=== PATIENT | female | born 1975 | race Caucasian/White ===

== ENCOUNTER 2022-08-29 12:22 | Emergency (ER) | payer BC, SELFPAY ==
--- NOTE | ~2022-08-29 | US_ITS ---
EXAMINATION: US ABDOMEN LIMITED CLINICAL INFORMATION: Epigastric pain. COMPARISON: None TECHNIQUE: Real-time imaging of the right upper quadrant abdominal viscera. FINDINGS: PANCREAS: Head and body appear unremarkable. Tail not visualized. LIVER: The liver is normal in size, measuring 17.0 cm in sagittal dimension. The liver contour appears unremarkable. Parenchymal echogenicity is normal. No focal hepatic lesion appreciated. There is no intrahepatic biliary duct dilatation seen. GALLBLADDER: Question 0.7 x 0.6 x 0.4 cm polyp versus nonshadowing stone versus artifact in the region of the gallbladder neck. COMMON BILE DUCT: Normal in caliber measuring 0.3 cm in diameter. RIGHT KIDNEY: No hydronephrosis. No renal calculi or focal parenchymal lesions. The kidney measures 11.7 cm in maximum dimension. FREE FLUID: None. US/US abdomen limited IMPRESSION: Question 0.7 x 0.6 x 0.4 cm polyp versus nonshadowing stone versus artifact in the region of the gallbladder neck.
[2022-08-29 12:42] VITALS: BP 119/84; PULSE 95; RESP 18; TEMP 36.6; O2SAT 100; BMI 23.0
--- NOTE | 2022-08-29 12:42 | ED_ITS ---
HPI - Abdominal Pain General Chief Complaint: Abdominal Pain <SUKHJINDER Minor - Last Filed: 08/29/22 12:46> Stated Complaint: abd pain <SUKHJINDER Minor - Last Filed: 08/29/22 12:46> Time Seen by Provider: 08/29/22 17:06 <SUKHJINDER Minor - Last Filed: 08/29/22 12:46> Source: patient <Kingston Bull MD - Last Filed: 08/29/22 17:22> Mode of arrival: ambulatory <Kingston Bull MD - Last Filed: 08/29/22 17:22> Limitations: no limitations <Kingston Bull MD - Last Filed: 08/29/22 17:22> History of Present Illness HPI narrative: 46-year-old female with no major medical problems presents with epigastric abdominal pain. The symptoms started 3 days ago. She describes it as a rambling and discomfort. Started after eating food. She does not eat fatty or fried foods. Pain did not radiate. It is moderate in nature. Every time she eats she gets similar symptoms. She denies any nausea vomiting, diarrhea, constipation. The pain does not radiate. She describes it again as a discomfort and rumbling. Not burning in nature. Is not sharp in nature. Not associated with exertion. Prior to this, patient has never had this before. She is status post appendectomy. Patient denies NSAID use and alcohol use. <Kingston Bull MD - Last Filed: 08/29/22 17:22> Related Data Home Medications: Previous Rx's Medication Instructions Recorded dicyclomine 20 mg tablet 20 mg PO TID #14 tabs 08/29/22 pantoprazole 40 mg tablet,delayed 40 mg PO DAILY #14 tabs 08/29/22 release <SUKHJINDER Minor - Last Filed: 08/29/22 12:46> Allergies/Adverse Reactions: Allergies Allergy/AdvReac Type Severity Reaction Status Date / Time Penicillins [PCN] Allergy Rash Verified 08/29/22 12:42 <SUKHJINDER Minor - Last Filed: 08/29/22 12:46> Review of Systems Review of Systems CONSTITUTIONAL: Denies weight loss, fever and chills. HEENT: Denies changes in vision and hearing. RESPIRATORY: Denies SOB and cough. CV: Denies palpitations no CP. GI: Positive abdominal pain, negative nausea, vomiting and diarrhea. : Denies dysuria and urinary frequency. MSK: Denies myalgia and joint pain. SKIN: Denies rash and pruritus. NEUROLOGICAL: Denies headache and syncope. PSYCHIATRIC: Denies recent changes in mood. Denies anxiety and depression. All other ROS are negative unless in HPI <Kingston Bull MD - Last Filed: 08/29/22 17:22> [facility] Social History Social History: Social History Advance Directives: No Advance Directives Information Provided: Yes <SUKHJINDER Minor - Last Filed: 08/29/22 12:46> Physical Exam ED Vital Signs: Vital Signs - 24 hr 08/29/22 12:42 Temperature 98 F Pulse Rate 95 Respiratory Rate 18 Blood Pressure 119/84 Pulse Oximetry 100 Oxygen Delivery Method Room Air BMI result Body Mass Index 23.0 <SUKHJINDER Minor - Last Filed: 08/29/22 12:46> Vital Signs - 24 hr 08/29/22 12:42 Temperature 98 F Pulse Rate 95 Respiratory Rate 18 Blood Pressure 119/84 Pulse Oximetry 100 Oxygen Delivery Method Room Air BMI result Body Mass Index 23.0 <Kingston Bull MD - Last Filed: 08/29/22 17:22> GEN: Well developed, no acute distress, alert, oriented HEENT: Normocephalic, atraumatic, normal external ears, nose appears normal, no oropharyngeal edema or exudates Eyes: Normal to appearance Neck: Supple, no lymphadenopathy Respiratory: Talks in complete sentences, no respiratory distress, clear to auscultation bilaterally Cardiovascular: Regular rate and rhythm, no murmurs rubs or gallops Abdomen: Soft, nontender, nondistended, no guarding, no rebound, negative Arndt sign Back: No CVA tenderness Extremities: No clubbing cyanosis or edema Neurologic: No focal neurologic deficits, cranial nerves 2-12 intact, strength is 5/5 bilaterally, gait normal Skin: No rash <Kingston Bull MD - Last Filed: 08/29/22 17:22> Course Course Course Narrative: RME - 46 yo F, with a past hx of renal artery aneurysm, presenting for evaluation of epigastric pain x 4 days. Pain worsens after eating. No nausea, vomiting, diarrhea. Last BM yesterday. No CP/SOB. VSS in triage. Patient stable to return to waiting room until treatment room becomes available. Plan: Labs, US abdomen ordered. <SUKHJINDER Minor - Last Filed: 08/29/22 12:46> Reevaluation(s) Reevaluation #1: The workup is complete. Ultrasound revealed a polyp in the gallbladder versus stone. This was discussed with the patient. She is currently asymptomatic. Exam is benign. There are no elevated LFTs. This is not exertional. Doubt cardiac in etiology. Suspect this is dyspepsia, GERD, gastritis possible biliary colic. I discussed all results with the patient. Discussed discharge plan and medications. She will follow-up with a general surgeon for further evaluation. <Kingston Bull MD - Last Filed: 08/29/22 17:22> Time: 17:16 <Kingston Bull MD - Last Filed: 08/29/22 17:22> Medical Decision Making Medical Decision Making [facility] Narrative: 46-year-old female presents with epigastric abdominal pain. Her e xamination is benign. Workup will include laboratory analysis, ultrasound and re-evaluation. <Kingston Bull MD - Last Filed: 08/29/22 17:22> Differential Diagnosis Differential Diagnoses: The differential diagnosis associated with the presentation includes (GERD, gastritis, dyspepsia, IBD, IBS, biliary colic, cholecystitis, diverticulitis) <Kingston Bull MD - Last Filed: 08/29/22 17:22> Admission/Observation Consideration of admission/observation: Escalation of care including admission/observation considered <Kingston Bull MD - Last Filed: 08/29/22 17:22> Lab Data [facility] Lab Attestation statement: I reviewed the patient's lab results. <Kingston Bull MD - Last Filed: 08/29/22 17:22> Result Diagrams: 08/29/22 12:59 08/29/22 12:59 <SUKHJINDER Minor - Last Filed: 08/29/22 12:46> Labs: Lab Results 08/29/22 08/29/22 Range/Units 12:59 12:59 WBC 5.0 (4.8-10.8) X10*3/uL RBC 4.21 (4.20-5.50) X10*6/uL Hgb 13.0 (12.0-16.0) g/dl Hct 38.4 (37.0-47.0) % MCV 91.2 (80.0-98.0) fL MCH 30.9 (27.0-33.0) pg MCHC 33.9 (31.0-35.0) g/dl RDW 12.4 (11.0-16.0) % Plt Count 178 (160-400) X10*3/uL MPV 9.5 (9.4-12.3) fL Immature Gran % (Auto) 0.2 (0.0-0.4) % Neut % (Auto) 46.5 (45-73) % Lymph % (Auto) 38.2 (20-40) % Anson % (Auto) 12.7 H (2-11) % Eos % (Auto) 2.2 (0-4) % Baso % (Auto) 0.2 (0-2) % Lymph # (Auto) 1.9 (1.2-4.9) X10*3/uL Anson # (Auto) 0.6 (0.1-1.2) X10*3/uL Eos # (Auto) 0.1 (0.0-0.4) X10*3/uL Baso # (Auto) 0.0 (0.0-0.2) X10*3/uL Abs Immat Gran (auto) 0.01 (0.00-0.03) X10*3/uL Absolute Neuts (auto) 2.3 (2.0-8.3) x10*3/uL Absolute Nucleated RBC 0.000 (0.0-0.012) X10*3/uL Nucleated RBC % (auto) 0.0 (0.0-0.2) /100WBC Sodium 140 (135-145) mmol/L Potassium 4.1 (3.3-5.1) mmol/L Chloride 105 (96-108) mmol/L Carbon Dioxide 27 (22-29) mmol/L Anion Gap 12 (12-20) BUN 11 (9-16) mg/dL Creatinine 0.71 (0.5-1.4) mg/dL Estim Creat Clear Calc 84.6 Estimated GFR > 60 Random Glucose 88 (60-115) mg/dL Calcium 9.1 (8.4-10.2) mg/dL Magnesium 1.9 (1.6-2.6) mg/dL Total Bilirubin 0.3 (0.0-1.0) mg/dL Direct Bilirubin < 0.2 (0.0-0.5) mg/dL AST 17 (5-31) U/L ALT 11 (0-31) U/L Alkaline Phosphatase 61 (39-117) U/L Total Protein 7.2 (6.5-8.0) g/dL Albumin 4.0 (3.5-5.0) g/dL Lipase 25 (8-78) U/L <SUKHJINDER Minor - Last Filed: 08/29/22 12:46> Lab Results 08/29/22 08/29/22 Range/Units 12:59 12:59 WBC 5.0 (4.8-10.8) X10*3/uL RBC 4.21 (4.20-5.50) X10*6/uL Hgb 13.0 (12.0-16.0) g/dl Hct 38.4 (37.0-47.0) % MCV 91.2 (80.0-98.0) fL MCH 30.9 (27.0-33.0) pg MCHC 33.9 (31.0-35.0) g/dl RDW 12.4 (11.0-16.0) % Plt Count 178 (160-400) X10*3/uL MPV 9.5 (9.4-12.3) fL Immature Gran % (Auto) 0.2 (0.0-0.4) % Neut % (Auto) 46.5 (45-73) % Lymph % (Auto) 38.2 (20-40) % Anson % (Auto) 12.7 H (2-11) % Eos % (Auto) 2.2 (0-4) % Baso % (Auto) 0.2 (0-2) % Lymph # (Auto) 1.9 (1.2-4.9) X10*3/uL Anson # (Auto) 0.6 (0.1-1.2) X10*3/uL Eos # (Auto) 0.1 (0.0-0.4) X10*3/uL Baso # (Auto) 0.0 (0.0-0.2) X10*3/uL Abs Immat Gran (auto) 0.01 (0.00-0.03) X10*3/uL Absolute Neuts (auto) 2.3 (2.0-8.3) x10*3/uL Absolute Nucleated RBC 0.000 (0.0-0.012) X10*3/uL Nucleated RBC % (auto) 0.0 (0.0-0.2) /100WBC Sodium 140 (135-145) mmol/L Potassium 4.1 (3.3-5.1) mmol/L Chloride 105 (96-108) mmol/L Carbon Dioxide 27 (22-29) mmol/L Anion Gap 12 (12-20) BUN 11 (9-16) mg/dL Creatinine 0.71 (0.5-1.4) mg/dL Estim Creat Clear Calc 84.6 Estimated GFR > 60 Random Glucose 88 (60-115) mg/dL Calcium 9.1 (8.4-10.2) mg/dL Magnesium 1.9 (1.6-2.6) mg/dL Total Bilirubin 0.3 (0.0-1.0) mg/dL Direct Bilirubin < 0.2 (0.0-0.5) mg/dL AST 17 (5-31) U/L ALT 11 (0-31) U/L Alkaline Phosphatase 61 (39-117) U/L Total Protein 7.2 (6.5-8.0) g/dL Albumin 4.0 (3.5-5.0) g/dL Lipase 25 (8-78) U/L <Kingston Bull MD - Last Filed: 08/29/22 17:22> Independent Interpretation I performed an independent interpretation of an: Ultrasound (No evidence of acute cholecystitis) <Kingston Bull MD - Last Filed: 08/29/22 17:22> Radiology Impression Discussion of test interpretation with radiology: I have reviewed the radiologist's reading. (IMPRESSION: Question 0.7 x 0.6 x 0.4 cm polyp versus nonshadowing stone versus artifact in the region of the gallbladder neck. Dictated By:Richard Ojedaigned By:<Electronically signed by Kip Ojeda in OV>08/29/22 1604) <Kingston Bull MD - Last Filed: 08/29/22 17:22> External Record Review No previous records available <Kingston Bull MD - Last Filed: 08/29/22 17:22> Tests considered The following testing was considered but not selected: CT scan abdomen and pelvis <Kingston Bull MD - Last Filed: 08/29/22 17:22> Prescription Management I considered prescription management with: Pain Medication <Kingston Bull MD - Last Filed: 08/29/22 17:22> Discharge Plan Discharge Clinical Impression: Abdominal pain, epigastric <SUKHJINDER Minor - Last Filed: 08/29/22 12:46> Patient Disposition: Home, Self-Care <SUKHJINDER Minor - Last Filed: 08/29/22 12:46> Instructions: Gastritis (ED), Biliary Colic (ED), Gastroesophageal Reflux Disease (ED), Abdominal Pain (ED), Epigastric Pain (ED) <SUKHJINDER Minor - Last Filed: 08/29/22 12:46> Additional Instructions: You were seen today for epigastric abdominal pain. Your examination was benign. Her laboratory results not show any abnormalities of the liver function test. Your ultrasound did show possible polyp versus gallstone. She developed persistent upper abdominal pain, you should seek attention in the emergency department. Otherwise, I will refer you to a general surgeon for re-evaluation for the possible polyp versus gallstone. In the meantime, I will start him on a proton pump inhibitor like pantoprazole she will take daily to reduce the acid in her stomach. In addition I will prescribe Bentyl or dicyclomine which may take 30 minutes before meals and before bed as needed for discomfort with eating. <SUKHJINDER Minor - Last Filed: 08/29/22 12:46> Prescriptions: New dicyclomine 20 mg tablet 20 mg PO TID Qty: 14 0RF Rx Instructions: Take 1 tablet orally 30 minutes before meals as needed for abdominal discomfort pantoprazole 40 mg tablet,delayed release (DR/EC) 40 mg PO DAILY Qty: 14 0RF <SUKHJINDER Minor - Last Filed: 08/29/22 12:46> Referrals: Mary Soni MD [Primary Care Provider] - 1 week Geronimo Lozano MD [Physician] - 1 week <SUKHJINDER Minor - Last Filed: 08/29/22 12:46>
[2022-08-29 13:03] LABS: MANUAL DIFF FLAG NO
[2022-08-29 13:06] LABS: Basophils Percent Auto 0.2 % (0-2); Eosinophils Absolute Auto 0.1 X10*3/uL (0.0-0.4); Eosinophils Percent Auto 2.2 % (0-4); Hematocrit 38.4 % (37.0-47.0); Imm Gran Abs Auto 0.01 X10*3/uL (0.00-0.03); Imm Gran Pct Auto 0.2 % (0.0-0.4); Lymphocytes Absolute Auto 1.9 X10*3/uL (1.2-4.9); Lymphocytes Percent Auto 38.2 % (20-40); Mean Corpuscular HGB Conc 33.9 g/dl (31.0-35.0); Mean Corpuscular Hemoglobin 30.9 pg (27.0-33.0); Mean Corpuscular Volume 91.2 fL (80.0-98.0); Mean Platelet Volume 9.5 fL (9.4-12.3); Monocytes Absolute Auto 0.6 X10*3/uL (0.1-1.2); Monocytes Percent Auto 12.7 % (2-11); Neutrophils Absolute Auto 2.3 x10*3/uL (2.0-8.3); Neutrophils Percent Auto 46.5 % (45-73); Platelet Count 178 X10*3/uL (160-400); Red Blood Count 4.21 X10*6/uL (4.20-5.50); Red Cell Distribution Width 12.4 % (11.0-16.0)
[2022-08-29 13:35] LABS: Alanine Aminotransferase 11 U/L (0-31); Alkaline Phosphatase 61 U/L (39-117); Anion Gap 12 (12-20); Aspartate Amino Transferase 17 U/L (5-31); Bilirubin Direct < 0.2 mg/dL (0.0-0.5); Bilirubin Total 0.3 mg/dL (0.0-1.0); Blood Urea Nitrogen 11 mg/dL (9-16); Calcium 9.1 mg/dL (8.4-10.2); Carbon Dioxide 27 mmol/L (22-29); Chloride 105 mmol/L (96-108); Creatinine Clr Calc Pharmacy 84.6; Estimated Glomerular Filt Rate > 60; Glucose Random 88 mg/dL (60-115); Lipase 25 U/L (8-78); Magnesium 1.9 mg/dL (1.6-2.6); Potassium 4.1 mmol/L (3.3-5.1); Sodium 140 mmol/L (135-145); Total Protein 7.2 g/dL (6.5-8.0)
== END 2022-08-29 17:27 | disposition home or self-care (01) ==
PROVIDERS: Physician Assistant; Emergency Provider Emergency Medicine; PCP Internal Medicine
DX: R10.13 Epigastric pain (principal)
CPT/HCPCS: 36415; 76705; 80048; 80076; 83690; 83735; 85025; 99282; 99284

== ENCOUNTER → 2022-08-31 15:15 | Outpatient (BNVA) | payer BC, SELFPAY | PROVIDERS: PCP Internal Medicine; Visit Provider Surgery | DX: Z13.89 Encounter for screening for other disorder (principal) ==

== ENCOUNTER 2022-09-26 08:51 | Outpatient (REF) | payer BC, SELFPAY ==
--- NOTE | ~2022-09-26 | CT_ITS ---
EXAMINATION: CT ABDOMEN AND PELVIS WITH CONTRAST CLINICAL INFORMATION: Abdominal pain COMPARISON: Ultrasound dated 08/29/2022 TECHNIQUE: Multidetector volumetric images were obtained from the superior aspect of the liver through the pubic symphysis following administration 85 mL of Omnipaque 350 intravenous contrast. Sagittal and coronal reformatted images were obtained on the technologist's workstation. Oral contrast: No This CT examination was performed using dose optimization techniques as appropriate, variously including the following: *Automated exposure control *Adjustment of mA and/or kV according to patient size (this includes techniques or standardized protocols for targeted exams where dose is matched to indication/reason for exam; i.e. extremities or head) *Use of iterative reconstruction technique DLP: 301 mGy-cm FINDINGS: LUNG BASES: The visualized lung bases are unremarkable. LIVER, GALLBLADDER, AND BILIARY TREE: The liver is normal in size, shape, and attenuation. No focal hepatic lesion or biliary ductal dilatation is present. The gallbladder is unremarkable with no evidence of radiopaque gallstones, gallbladder wall thickening, or obvious pericholecystic inflammatory changes. PANCREAS: Unremarkable. SPLEEN: Unremarkable. ADRENAL GLANDS: Unremarkable. KIDNEYS AND URETERS: The kidneys are normal in size, shape, and attenuation. No hydronephrosis, hydroureter, or calculi seen. No perinephric stranding. Benign-appearing left renal cyst. Followup imaging is not routinely recommended for benign appearing cysts.. BLADDER: Unremarkable. GASTROINTESTINAL TRACT: The small and large bowel are unremarkable. The appendix is unremarkable. ABDOMINAL WALL: No significant hernia is appreciated. LYMPH NODES: Normal. VASCULAR: Unremarkable. PELVIC VISCERA: Unremarkable. OSSEOUS STRUCTURES: Unremarkable. CT/CT abdomen pelvis w IV con IMPRESSION: No acute intra-abdominal abnormality. Previously seen gallstone/polyp on prior ultrasound is not visualized on today's study and may not be radiopaque.
[2022-09-26] MEDS: iohexoL 350 MG/ML 100 ML INFUS..BTL 85 ML IV (09:21)
== END 2022-09-26 08:52 | disposition home or self-care (01) ==
LOC: HO.CT 08:51
PROVIDERS: Visit Provider Surgery
DX: R10.9 Unspecified abdominal pain (principal); G89.29 Other chronic pain
CPT/HCPCS: 74177; Q9967

== ENCOUNTER → 2022-10-03 15:35 | Outpatient (BNVA) | payer BC, SELFPAY | PROVIDERS: PCP Internal Medicine; Visit Provider Surgery | DX: Z13.89 Encounter for screening for other disorder (principal) ==

== ENCOUNTER 2022-10-17 10:15 | Outpatient (REF) | payer BC, SELFPAY ==
--- NOTE | ~2022-10-17 | MR_ITS ---
EXAMINATION: MR BRAIN WITHOUT CONTRAST CLINICAL INFORMATION: Left facial numbness and paresthesias for one year. COMPARISON: None available. TECHNIQUE: Multiplanar, multisequence imaging of the brain was performed without intravenous contrast. FINDINGS: There is no acute infarction, hemorrhage, mass, or extra-axial fluid collection. The brain parenchyma signal appears normal. No demyelinating plaques are seen. The corpus callosum and upper cervical cord appear normal on the sagittal T2/FLAIR acquisition. The ventricles are normal in size and configuration without hydrocephalus. No brain parenchymal volume loss is seen. The major arterial flow voids are preserved at the skull base. The orbital contents appear normal. The extracranial structures are unremarkable. The facial soft tissues appear symmetric. The visualized secretarial stenographer spaces are unremarkable. MR/MR head/brain wo con IMPRESSION: No acute infarct, mass lesion, intracranial hemorrhage, or evidence of hydrocephalus. No demyelinating plaques.
== END 2022-10-17 10:16 | disposition home or self-care (01) ==
LOC: HO.MRI 10:15
PROVIDERS: PCP Internal Medicine; Visit Provider Psychiatry & Neurology Neurology
DX: G37.9 Demyelinating disease of central nervous system, unspecified (principal)
CPT/HCPCS: 70551

== ENCOUNTER 2023-05-29 08:37 | Outpatient (REF) | payer BC, SELFPAY ==
--- NOTE | ~2023-05-29 | US_ITS ---
EXAMINATION: US ABDOMEN LIMITED CLINICAL INFORMATION: Cholesterolosis of the gallbladder. Follow up for question of gallbladder polyp versus gallstone. COMPARISON: CT abdomen and pelvis with contrast 09/26/2022. Ultrasound abdomen limited 08/29/2022. TECHNIQUE: Real-time imaging of the right upper quadrant abdominal viscera. FINDINGS: PANCREAS: Normal. LIVER: Normal. The liver is normal in size. The liver contour is normal. Parenchymal echogenicity is normal. No focal hepatic lesion. There is no intrahepatic biliary duct dilatation seen. GALLBLADDER: Normal. The gallbladder is physiologically distended without evidence of stones, sludge, polyps, wall thickening or pericholecystic fluid. COMMON BILE DUCT: Normal in caliber measuring 0.1 cm in diameter. RIGHT KIDNEY: Normal. No hydronephrosis. No renal calculi or focal parenchymal lesions. The kidney measures 12.2 cm in maximum dimension. FREE FLUID: None. US/US abdomen limited IMPRESSION: Unremarkable study. 7 mm polyp versus nonshadowing stone questioned on 08/29/2022 ultrasound is not identified on today's examination.
== END 2023-05-29 08:38 | disposition home or self-care (01) ==
LOC: HO.US 08:37
PROVIDERS: PCP Internal Medicine; Visit Provider Surgery
DX: K82.4 Cholesterolosis of gallbladder (principal)
CPT/HCPCS: 76705

== ENCOUNTER 2023-06-05 09:25 | Outpatient (AMB) | payer BC, SELFPAY ==
--- NOTE | 2023-06-05 09:26 | A.OFFVIS_ITS ---
Intake Vital Signs 06/05/23 09:32 Height 5 ft 4 in Weight 157 lb 2.01 oz BMI 27.0 BP 129/69 Blood Pressure Location Rt brachial Position Sitting Pulse 62 Intake Visit Reasons: Gallbladder polyp, US results Intake Note: This patient presents for a follow-up assessment for Ultrasound results. Patient c/o; reports no changes or concerns at this time. Filament Coil Winder Required: No Accompanied by: Self / Same As Patient Allergies Penicillins [PCN] Allergy (Verified 06/05/23 09:33) Rash Medication List - Last Reconciled 06/05/23 by Geronimo Lozano MD dicyclomine 20 mg PO TID pantoprazole 40 mg PO DAILY HPI Gallbladder polyp, US results HPI Details She is here because of a history of what appeared to be a gallbladder p olyp on imaging studies from last August,. She had been to the ER at that time for some vague abdominal pain I had ordered for a follow-up ultrasound and she is here to discuss this. She denies any GI complaints. She denies any abdominal pain. [facility] Medical History Gallbladder polyp Chronic abdominal pain Surgical History History of tubal ligation History of appendectomy Social History Alcohol intake: current Alcohol intake frequency: holidays/special occasions only Patient Tobacco Use Status: Never used Tobacco Review of Systems Const Denies chills and Denies fever(s) Card Denies chest pain, Denies dyspnea and Denies dyspnea on exertion Resp Denies cough, Denies dyspnea and Denies dyspnea on exertion GI Denies hematochezia and Denies change in bowel habits Denies hematuria Musc Denies back pain and Denies limited range of motion Neuro Denies focal weakness and Denies convulsions Psych Denies depression and Denies mood swings Physical Exam Vital Signs: Last Vital Signs Pulse 62 06/05/23 09:32 BP 129/69 06/05/23 09:32 BMI result Body Mass Index 27.0 Const General: comfortable and no acute distress Resp Effort & Inspection: normal respiratory effort Cardio Rate: regular rate GI Palpation (GI): Soft to palpation, not firm and nontender Assessment & Plan Assessment & Plan (1) Gallbladder polyp: Code(s): K82.4 - Cholesterolosis of gallbladder Plan: I have reviewed her follow-up ultrasound done on 05/29/2023 and this actually does not reveal any gallbladder polyps or any nor gallstones. I explained to her this finding. She does not require any further workup at this time. She can follow up on a p.r.n. basis. Coding Level of Care Code Est Pt Level 3 (69673) Diagnoses Gallbladder polyp K82.4
[2023-06-05 09:32] VITALS: BP 129/69; PULSE 62; BMI 27.0
== END 2023-06-05 09:35 | disposition home or self-care (01) ==
PROVIDERS: PCP Internal Medicine; Visit Provider Surgery
DX: K82.4 Cholesterolosis of gallbladder (principal)
CPT/HCPCS: 99213

== ENCOUNTER → 2023-06-05 09:25 | Outpatient (BNVA) | payer BC, SELFPAY | PROVIDERS: PCP Internal Medicine; Visit Provider Surgery ==

== ENCOUNTER 2024-09-16 08:09 | Emergency (ER) | payer BC, SELFPAY ==
[2024-09-16 08:18] VITALS: BP 124/73; PULSE 66; RESP 16; TEMP 37; O2SAT 100; BMI 26.9
--- NOTE | 2024-09-16 08:46 | ED_ITS ---
HPI - Headache General Chief Complaint: Headache Stated Complaint: migraine Time Seen by Provider: 09/16/24 08:32 History of Present Illness HPI Narrative: Patient is a 49-year-old female with a history of migraine. Patient complaining of headache mainly on the right side. There is no vomiting positive nausea. Patient is from home. No focal weakness. No chest pain or diaphoresis. Symptoms been ongoing for 2 days. Very similar to previous bouts. Positive photophobia. No prodrome. Try a Triptan but did not help Related Data Previous Rx's ?Medication ?Instructions ?Recorded dicyclomine 20 mg tablet 20 mg PO TID #14 tabs 08/29/22 pantoprazole 40 mg tablet,delayed 40 mg PO DAILY #14 tabs 08/29/22 release Allergies Allergy/AdvReac Type Severity Reaction Status Date / Time Penicillins [PCN] Allergy Rash Verified 09/16/24 08:22 Review of Systems Review of Systems: positive headache positive nausea vomiting Yes all other systems are reviewed and are negative PMFSH Past Medical History Attestation statement: The following information was validated with the patient. Medical History Gallbladder polyp Chronic abdominal pain Surgical History History of tubal ligation History of appendectomy Social History Social History Alcohol intake: current Alcohol intake frequency: holidays/special occasions only Patient Tobacco Use Status: Never used Tobacco Smoked in Last 30 Days: No Advance Directives: No Advance Directives Information Provided: Yes Patient : No Physical Exam Vital Signs: Vital Signs: Last Vital Signs Temp 98.6 F 09/16/24 08:18 Pulse 66 09/16/24 08:18 Resp 16 09/16/24 08:18 BP 124/73 09/16/24 08:18 Pulse Ox 100 09/16/24 08:18 O2 Del Method Room Air 09/16/24 08:18 BMI result Body Mass Index 26.9 Appearance: Alert. Oriented X3. No acute distress. Eyes: Pupils equal, round and reactive to light. ENT: Pharynx normal. Neck: Normal inspection. Neck supple. No lymph nodes noted. No crepitus CVS: Normal heart rate and rhythm. Pulses normal. Normal S1 and S2 Respiratory: No respiratory distress. Breath sounds normal. No Wheezing. No rales Abdomen: Soft and nontender. No rigidity. No distention. good BS x4 Skin: Skin warm and dry. Normal skin color. Normal skin turgor. Extremities: No lower extremity edema. Neurovascular intact to all extremities. No Lacerations. No Rash Neuro: Oriented X 3. No motor deficit. No sensory deficit. Moving all extermities. No slurred speech Medications Administered Discontinued Medications Generic Name Dose Route Start Last Admin Trade Name Jameelq PRN Reason Stop Dose Admin Diphenhydramine HCl 50 mg 09/16/24 08:42 09/16/24 09:09 Diphenhydramine Hcl 50 Mg/Ml Vial IVPUSH 09/16/24 08:43 50 mg ONCE ONE Administration Sodium Chloride 1,000 mls @ 999 mls/hr 09/16/24 08:45 09/16/24 09:08 Ns IV 09/16/24 09:45 999 mls/hr .Q1H1M JASPER Administration Ketorolac Tromethamine 15 mg 09/16/24 08:43 09/16/24 09:08 Ketorolac Tromethamine 15 Mg/Ml Vial IVPUSH 09/16/24 08:44 15 mg ONCE ONE Administration Metoclopramide HCl 10 mg 09/16/24 08:42 09/16/24 09:09 Metoclopramide Hcl 10 Mg/2 Ml Vial IVPUSH 09/16/24 08:43 10 mg ONCE ONE Administration Medical Decision Making Medical Decision Making [facility] Narrative: Patient is 49 years old presents today with having headache that is very similar to previous bouts of migraine. Patient was given Reglan Benadryl Toradol with good relief symptoms headache is completely gone symptoms not consistent with meningitis not consistent with having intracranial bleed. Will discharge patient home close follow-up on an outpatient basis. Differential Diagnosis Differential Diagnoses: The differential diagnosis associated with the presentation includes Migraine headache Lab Data [facility] Lab Attestation statement: I reviewed the patient's lab results. Prescription Management I considered prescription management with: Antibiotic ( not needed) Chronic Conditions history of migraine Discharge Plan Discharge Clinical Impression: Migraine Patient Disposition: Home, Self-Care Instructions: Migraine Headache (ED) Prescriptions: No Action dicyclomine 20 mg tablet 20 mg PO TID Qty: 14 0RF Rx Instructions: Take 1 tablet orally 30 minutes before meals as needed for abdominal discomfort pantoprazole 40 mg tablet,delayed release (DR/EC) 40 mg PO DAILY Qty: 14 0RF Referrals: Oralia Velez MD [Primary Care Provider] - 09/18/24 Print Language: Japanese
[2024-09-16] MEDS: Ketorolac Tromethamine 15 MG/ML VIAL IVPUSH (09:08)
[2024-09-16] MEDS: 0.9 % Sodium Chloride 1,000 ML 999 ML IV (09:08)
[2024-09-16] MEDS: Metoclopramide HCl 10 MG/2 ML VIAL IVPUSH (09:09)
[2024-09-16] MEDS: diphenhydrAMINE HCL 50 MG/ML VIAL IVPUSH (09:09)
[2024-09-16 10:17] VITALS: BP 100/55; PULSE 56; RESP 14; TEMP 36.7; O2SAT 100
[2024-09-16 10:30] VITALS: BP 100/55; PULSE 56; RESP 14; TEMP 36.7; O2SAT 100
== END 2024-09-16 10:31 | disposition home or self-care (01) ==
PROVIDERS: Emergency Provider Emergency Medicine Emergency Medical Services; PCP Internal Medicine
DX: G43.909 Migraine, unspecified, not intractable, without status migrainosus (principal); R11.0 Nausea; H53.143 Visual discomfort, bilateral
CPT/HCPCS: 96374; 96375; 99284; 99285; J1200; J1885; J2765

== ENCOUNTER 2024-11-20 11:17 | Emergency (ER) | payer BC, SELFPAY ==
--- NOTE | ~2024-11-20 | US_ITS ---
EXAMINATION: US ABDOMEN LIMITED HISTORY: RUQ abd pain. TECHNIQUE: Real-time grayscale ultrasound imaging of the gallbladder was performed and images were reviewed. COMPARISON: Correlation is made with an abdominal ultrasound dated 05/22/2023. FINDINGS: The gallbladder is unremarkable, without evidence of stones, wall thickening, or pericholecystic fluid. There is no sonographic Arndt sign. The common bile duct is normal in caliber measuring 3 mm in diameter. US/US abdomen limited IMPRESSION: Unremarkable ultrasound of the gallbladder. Electronically signed by: Sudhir Winter MD 11/20/2024 01:40 PM EDT
[2024-11-20 12:04] VITALS: BP 110/68; PULSE 72; RESP 18; TEMP 36.3; O2SAT 99; BMI 28.2
--- NOTE | 2024-11-20 12:05 | ED_ITS ---
HPI - Abdominal Pain General Chief Complaint: Abdominal Pain Stated Complaint: Abd Pain Time Seen by Provider: 11/20/24 14:07 Source: patient Mode of arrival: ambulatory Limitations: no limitations History of Present Illness ED Provider: HPI narrative: This is a 49-year-old woman who is otherwise healthy, very occasional alcohol use presenting with epigastric pain that started after lunch yesterday, she had leonardo egg and cheese half of it in the morning half at in the evening she did have some abdominal discomfort few weeks prior when she had fevers and chills and then nausea and vomiting. She has had no vaginal bleeding or discharge no diarrhea, no lower abdominal pain. No chest pain or shortness of breath. Related Data Previous Rx's ?Medication ?Instructions ?Recorded dicyclomine 20 mg tablet 20 mg PO TID #14 tabs 08/29/22 pantoprazole 40 mg tablet,delayed 40 mg PO DAILY #14 tabs 08/29/22 release famotidine 40 mg tablet 40 mg PO BEDTIME 30 days #30 tabs 11/20/24 ondansetron 4 mg disintegrating 4 mg PO Q8H PRN nausea and 11/20/24 tablet vomiting #4 tabs sucralfate 1 gram tablet (Carafate) 1 g PO Q6H 7 days #28 tabs 11/20/24 Allergies Allergy/AdvReac Type Severity Reaction Status Date / Time Penicillins [PCN] Allergy Rash Verified 11/20/24 12:05 Review of Systems Constitutional: Reports as per [facility] Past Medical History Medical History Gallbladder polyp Chronic abdominal pain Surgical History History of tubal ligation History of appendectomy Social History Social History Alcohol intake: current Alcohol intake frequency: holidays/special occasions only Patient Tobacco Use Status: Never used Tobacco Advance Directives: No Advance Directives Information Provided: Yes Do you have a plan to hurt others: No Plan Physical Exam ED Vital Signs: Vital Signs - 24 hr 11/20/24 12:04 11/20/24 14:39 Temperature 97.4 F 97.4 F Pulse Rate 72 72 Respiratory Rate 18 18 Blood Pressure 110/68 110/68 Pulse Oximetry 99 99 Oxygen Delivery Method Room Air Room Air BMI result Body Mass Index 28.2 Const Other: * Gen: ?Overall well-appearing patient * HEENT:MMM, no scleral icterus * CV: RRR, no obvious murmurs appreciated * Resp: ?No wheezing rales rhonchi no stridor moving air well * Abd: ?Bowel sounds are present, no tenderness no rebound no rigidity, no CVA tenderness * MSK: FROM, strength 5/5 all extremities * Skin: Warm, dry, intact, * Neuro: ?Alert and oriented x3, moving upper and lower extremities symmetrically, no obvious facial asymmetry noted Course Course Course Narrative: This is a Rapid Medical Exam performed in triage by Sheeba Allred PA-C. Full HPI, ROS and PE to be performed by primary ED provider. 49-year-old female presenting to the ED c/o nausea & upper abdominal pain x last night. Pain worse w/moving, now intermittent. denies vomiting or diarrhea PE: Abdomen is soft with mild epigastric/RUQ tenderness, no rebound or guarding Plan: labs, UA, ultrasound Medical Decision Making Medical Decision Making MDM Narrative: Some of the considerations for workup as below, she has a fairly benign abdominal exam otherwise, she did have an ultrasound that did not reveal any evidence of cholecystitis, when she presented she did have right upper quadrant pain and epigastric pain but that has since resolved on my exam, see my discharge instructions, we will medicate for her symptoms. We will obtain ECG to make sure this is not cardiac related but this is unlikely Differential Diagnosis Hepatitis, pancreatitis, cholecystitis, SBO, ACS, dehydration, electrolyte derangements, ectopic Admission/Observation Consideration of admission/observation: Escalation of care including admission/observation considered Nontoxic-appearing, blood work reassuring vital signs are stable Lab Data [facility] Lab Attestation statement: I reviewed the patient's lab results. 11/20/24 13:14 11/20/24 13:14 Labs: Lab Results 11/20/24 11/20/24 Range/Units 13:14 13:28 WBC 6.0 (4.8-10.8) X10*3/uL RBC 4.34 (4.20-5.50) X10*6/uL Hgb 13.2 (12.0-16.0) g/dl Hct 39.9 (37.0-47.0) % MCV 91.9 (80.0-98.0) fL MCH 30.4 (27.0-33.0) pg MCHC 33.1 (31.0-35.0) g/dl RDW 12.4 (11.0-16.0) % Plt Count 180 (160-400) X10*3/uL MPV 9.9 (9.4-12.3) fL Immature Gran % (Auto) 0.3 (0.0-0.4) % Neut % (Auto) 63.3 (45-73) % Lymph % (Auto) 27.0 (20-40) % [place] % (Auto) 8.0 (2-11) % Eos % (Auto) 1.2 (0-4) % Baso % (Auto) 0.2 (0-2) % Lymph # (Auto) 1.6 (1.2-4.9) X10*3/uL [place] # (Auto) 0.5 (0.1-1.2) X10*3/uL Eos # (Auto) 0.1 (0.0-0.4) X10*3/uL Baso # (Auto) 0.0 (0.0-0.2) X10*3/uL Abs Immat Gran (auto) 0.02 (0.00-0.03) X10*3/uL Absolute Neuts (auto) 3.8 (2.0-8.3) x10*3/uL Absolute Nucleated RBC 0.000 (0.0-0.012) X10*3/uL Nucleated RBC % (auto) 0.0 (0.0-0.2) /100WBC Sodium 140 (135-145) mmol/L Potassium 4.2 (3.3-5.1) mmol/L Chloride 106 (96-108) mmol/L Carbon Dioxide 28 (22-29) mmol/L Anion Gap 10 L (12-20) BUN 13 (9-16) mg/dL Creatinine 0.73 (0.5-1.4) mg/dL Estim Creat Clear Calc 91.0 Estimated GFR > 60 Random Glucose 95 (60-115) mg/dL Calcium 8.9 (8.4-10.2) mg/dL Magnesium 2.0 (1.6-2.6) mg/dL Total Bilirubin 0.3 (0.0-1.0) mg/dL Direct Bilirubin 0.1 (0.0-0.5) mg/dL AST 20 (5-31) U/L ALT 13 (0-31) U/L Alkaline Phosphatase 84 (39-117) U/L Total Protein 7.6 (6.5-8.0) g/dL Albumin 4.5 (3.5-5.0) g/dL Lipase 36 (8-78) U/L Urine Color Yellow Urine Appearance Clear Urine pH 6.0 (5.0-9.0) Ur Specific [place] 1.010 (1.005-1.025) Urine Protein Negative (Neg-Trace) mg/dL Urine Glucose (UA) Negative (Negative) mg/dL Urine Ketones Negative (Negative) mg/dL Urine Blood Negative (Negative) Urine Nitrite Negative (Negative) Ur Leukocyte Esterase Negative (Negative) Urine Test NEGATIVE (NEGATIVE) Independent Interpretation I performed an independent interpretation of an: EKG (65 otherwise normal ECG without dysrhythmia, AV aspen blocks or ST-T changes to suspect underlying ACS, my independent interpretation) Radiology Impression Discussion of test interpretation with radiology: I have reviewed the radiologist's reading. Radiologist Impression: [place] [id number] Ultrasound Report Signed Patient: Juliette Rojas MR#: [id number] : 1975 Acct:[id number] Age/Sex: 49 / F ADM Date: 11/20/24 Loc: .ED Attending Dr: EXAMINATION: US ABDOMEN LIMITED HISTORY: RUQ abd pain. TECHNIQUE: Real-time grayscale ultrasound imaging of the gallbladder was performed and images were reviewed. COMPARISON: Correlation is made with an abdominal ultrasound dated 05/22/2023. FINDINGS: The gallbladder is unremarkable, without evidence of stones, wall thickening, or pericholecystic fluid. There is no sonographic Arndt sign. The common bile duct is normal in caliber measuring 3 mm in diameter. US/US abdomen limited IMPRESSION: Unremarkable ultrasound of the gallbladder. Medications Administered Discontinued Medications Generic Name Dose Route Start Last Admin Trade Name Freq PRN Reason Stop Dose Admin Al Hydroxide/Mg Hydroxide 30 ml 11/20/24 14:16 11/20/24 14:35 Magnesium Hydrox/Alum Hydrox 30 Ml Oral.Susp PO 11/20/24 14:17 30 ml ONCE ONE Administration Famotidine 20 mg 11/20/24 14:16 11/20/24 14:35 Famotidine 20 Mg Tablet PO 11/20/24 14:17 20 mg ONCE ONE Administration Lidocaine HCl 15 ml 11/20/24 14:16 11/20/24 14:35 Lidocaine Hcl Viscous 2 % 15 Ml Solution PO 11/20/24 14:17 15 ml ONCE ONE Administration Ondansetron HCl 4 mg 11/20/24 14:16 11/20/24 14:35 Ondansetron Odt 4 Mg Tab.Rapdis TRANSLINGU 11/20/24 14:17 4 mg ONCE ONE Administration Discharge Plan Discharge Clinical Impression: Abdominal pain, epigastric Patient Disposition: Home, Self-Care Instructions: Epigastric Pain (ED) Additional Instructions: Evaluated with abdominal pain, you had fairly involved workup which included blood work, ultrasound of the gallbladder, EKG, physical exam, all of which has been reassuring, I suspect the lining of the stomach is inflamed likely due to the fact that few weeks ago you had some kind of viral illness and then due to a fatty meal, adjusted diet as we have discussed, use medications as prescribed Carafate 1 pill 20 minutes before any meals, Zofran as needed for nausea and vomiting and take famotidine for rest of the month to decrease acid secretion, in the past he is taking pantoprazole just to make sure you not using both so either use Protonix off amantadine but not both follow up with PCP worsening issues or concerns come back to the ER Prescriptions: New ondansetron 4 mg tablet,disintegrating 4 mg PO Q8H PRN (Reason: nausea and vomiting) Qty: 4 0RF famotidine 40 mg tablet 40 mg PO BEDTIME 30 Days Qty: 30 0RF sucralfate [Carafate] 1 gram tablet 1 g PO Q6H 7 Days Qty: 28 0RF No Action dicyclomine 20 mg tablet 20 mg PO TID Qty: 14 0RF Rx Instructions: Take 1 tablet orally 30 minutes before meals as needed for abdominal discomfort pantoprazole 40 mg tablet,delayed release (DR/EC) 40 mg PO DAILY Qty: 14 0RF Interventions: ED Discharge Assessment Last Done: 11/20/24 14:39 Print Language: Peruvian
[2024-11-20 13:17] LABS: MANUAL DIFF FLAG NO
[2024-11-20 13:23] LABS: Basophils Percent Auto 0.2 % (0-2); Eosinophils Absolute Auto 0.1 X10*3/uL (0.0-0.4); Eosinophils Percent Auto 1.2 % (0-4); Hematocrit 39.9 % (37.0-47.0); Hemoglobin 13.2 g/dl (12.0-16.0); Imm Gran Abs Auto 0.02 X10*3/uL (0.00-0.03); Imm Gran Pct Auto 0.3 % (0.0-0.4); Lymphocytes Absolute Auto 1.6 X10*3/uL (1.2-4.9); Mean Corpuscular HGB Conc 33.1 g/dl (31.0-35.0); Mean Corpuscular Hemoglobin 30.4 pg (27.0-33.0); Mean Corpuscular Volume 91.9 fL (80.0-98.0); Mean Platelet Volume 9.9 fL (9.4-12.3); Monocytes Absolute Auto 0.5 X10*3/uL (0.1-1.2); Neutrophils Absolute Auto 3.8 x10*3/uL (2.0-8.3); Neutrophils Percent Auto 63.3 % (45-73); Platelet Count 180 X10*3/uL (160-400); Red Blood Count 4.34 X10*6/uL (4.20-5.50); Red Cell Distribution Width 12.4 % (11.0-16.0)
[2024-11-20 13:34] LABS: Appearance Urine Clear; Color Urine Yellow; Glucose Urine UA Negative (Negative); Leukocyte Esterase Urine Negative (Negative); Nitrite Urine Negative (Negative); Urine Blood Negative (Negative); Urine Ketones Negative (Negative); Urine Protein Negative (Neg-Trace)
[2024-11-20 13:37] LABS: UPreg QC Valid YES; Urine Pregnancy NEGATIVE (NEGATIVE)
[2024-11-20 13:53] LABS: Alanine Aminotransferase 13 U/L (0-31); Alkaline Phosphatase 84 U/L (39-117); Anion Gap 10 (12-20); Aspartate Amino Transferase 20 U/L (5-31); Bilirubin Direct 0.1 mg/dL (0.0-0.5); Blood Urea Nitrogen 13 mg/dL (9-16); Calcium 8.9 mg/dL (8.4-10.2); Carbon Dioxide 28 mmol/L (22-29); Chloride 106 mmol/L (96-108); Glucose Random 95 mg/dL (60-115); Lipase 36 U/L (8-78); Potassium 4.2 mmol/L (3.3-5.1); Sodium 140 mmol/L (135-145); Total Protein 7.6 g/dL (6.5-8.0)
--- NOTE | 2024-11-20 14:09 | ECG_ITS ---
Test Reason : CP Blood Pressure : */* mmHG Vent. Rate : 65 BPM Atrial Rate : 65 BPM P-R Int : 154 ms QRS Dur : 84 ms QT Int : 386 ms P-R-T Axes : 44 66 40 degrees QTcB Int : 401 ms Normal sinus rhythm Normal ECG No previous ECGs available Referred By: Giovanny Boland Electronically Signed By: KAYLEEN CRUZ MD
--- OUTSIDE RECORDS SUMMARY | 2024-11-20 14:13 | XMS_ITS | Encounter Summary ---
Author Organization [address] [address] [place] [address] Care Team Providers Care Assembler [employer] Building Name Role Phone Oralia Velez MD Primary Care Provider [phone] Reason for Visit * Reason Onset Date Comments Abdominal Pain 11/20/2024 Encounter Details Date Type Department Care Team (Late st Contact Info) Description 11/20/2024 Nurse Triage Adult Medicine [facility] [address] [place] [address] Oralia Velez MD [address] [place], [place] Abdominal Pain Social History Tobacco Use Types Packs/Day Years Used Date Smoking Tobacco: Never Smokeless Tobacco: Never Alcohol Use Standard Drinks/Week Comments No 0 (1 standard drink = 0.6 oz pur e alcohol) Comments Unknown Sex and Gender Information Value Date Recorded Sex Assigned at Not on file Legal Sex Female 12:52 AM EST Gender Identity Not on file Sexual Orientation Not on file documented as of this encounter Progress Notes * Lolis Harris RN - 11/20/2024 9:07 AM EDT She was instructed to go to the ER for further evaluation and treatment. She is in agreement with this plan and states she will go to [facility] ER. Reason for Disposition [1] Pain lasts > 10 minutes AND [2] age > 50 Answer Assessment - Initial Assessment Questions 1. LOCATION: Where does it hurt? Upper epigastric region 2. RADIATION: Does the pain shoot anywhere else? (e.g., chest, back) No radiation 3. ONSET: When did the pain begin? (e.g., minutes, hours or days ago) Pain started yesterday after she ate lunch 4. SUDDEN: Gradual or sudden onset? Gradual. Symptoms started with lethargy then progressed to nausea then pain 5. PATTERN Does the pain come and go, or is it constant? - If it comes and goes: How long does it last? Do you have pain now? (Note: Comes and goes means the pain is intermittent. It goes away completely between bouts.) - If constant: Is it getting better, staying the same, or getting worse? (Note: Constant means the pain never goes away completely; most serious pain is constant and gets worse.) She states the pain is constant. She states the pain has gotten slightly better this morning. 6. SEVERITY: How bad is the pain? (e.g., Scale 1-10; mild, moderate, or severe) - MILD (1-3): Doesn't interfere with normal activities, abdomen soft and not tender to touch. - MODERATE (4-7): Interferes with normal activities or awakens from sleep, abdomen tender to touch. - SEVERE (8-10): Excruciating pain, doubled over, unable to do any normal activities. She rates the pain as 3/10 and describes the pain as dull. 7. RECURRENT SYMPTOM: Have you ever had this type of stomach pain before? If Yes, ask: When was the last time? and What happened that time? Yes 2 or so years ago r/t her gallbladder. She states she had an illness a couple of weeks ago withchills, runny nose and a cough. The following weekend she woke up with vomiting and diarrhea. She has had a decreased appetite since the GI illness. 8. CAUSE: What do you think is causing the stomach pain? Unknown 9. RELIEVING/AGGRAVATING FACTORS: What makes it better or worse? (e.g., antacids, bending or twisting motion, bowel movement) No 10. OTHER SYMPTOMS: Do you have any other symptoms? (e.g., back pain, diarrhea, fever, urination pain, vomiting) No 11. : Is there any chance you are ? When was your last menstrual period? No she is post menopausal Protocols used: Abdominal Pain - Female-A-AH, Abdominal Pain - Upper-A-AH * Yokasta Marin - 11/20/2024 8:36 AM EDT Patient calling staying she has been having bad stomach pain since yesterday, feels like she can't eat. documented in this encounter Plan of Treatment Not on file documented as of this encounter Visit Diagnoses Not on filedocumented in this encounter Care Teams Assembler Metal Building Relationship Specialty Start Date End Date Oralia Velez MD [address] [place] [id number] PCP - General Internal Medicine 01/05/21 documented as of this encounter
--- OUTSIDE RECORDS SUMMARY | 2024-11-20 14:13 | XMS_ITS | Data Portability ---
Author Organization [facility], Main Office Address [address] [facility] [address] [place] [phone] Care Team Providers Care Internet Marketing Executive Name Role Phone BHAVYA CARDOZA Primary Care Provider KIMMY PUENTES OTHER Assessment No assessment recorded. Plan of Treatment Reminders Order Date Submit Date Provider Last Modified By Organization Details Last Modified Time Details Appointments None record ed. Lab None record ed. Referral None record ed. Procedures None record ed. Surgeries None record ed. Imaging None record ed. Medication Orders None record ed. Patient TargetsNo targets recorded. Patient Instructions Encounter Date Encounter Id Patient Instructions Last Modified By Organization Details Last Modified Time 02/06/2014 [id number] allergies: care instructions abolcun Not available 02/07/2014 10:11:16 managing your allergies: care instructions abolcun Not available 02/07/2014 10:11:16 headache: care instructions abolcun Not available 02/07/2014 10:11:16 Reason for Referral None Reported. Results Created Date Observation Date Name Description Value Unit Range Abnormal Flag Note LastModifiedBy Organization Detail LastModifiedTime Result Notes None recorded. Problems Name Problem SNOMED Code Status Onset Date Resolution Date Notes Provider Name and Address Organization Details Recorded Time Gastroeso phageal reflux disease 402877709 Active MAXINE Lewis [facility] 4 12:41:46 Allergic rhinitis 78145246 Active Bhavya blevins [facility] 4 13:24:51 Headache 35140017 Active Bhavya blevins [facility] 4 13:24:51 Disorder of upper respirato ry system 282816297 Active 2013 RECORDED 08/21/2013 8:53AM BY ADRIANE GOLD, HISTORICAL SUMMARY Not Available [facility] 4 05:24:02 Abdominal pain 48522809 Active Bhayva blevins [facility] 4 14:49:38 Pure hyperchol esterolem ia 452257407 Active 2012 IMPRESSION : CHECK FASTING EYE DOC SAW QUESTION OF CHOLESTERO L ON EYE EXAM; RECORDED 11/30/2012 1:36PM BY BHAVYA JUSTICE MD, OFFICE VISIT Not Available [facility] 4 05:24:02 Problem Notes None recorded. Procedures Surgical History Date Name Laterality Status Provider Name and Address Organization Details Recorded Time 10/19/2015 Date of Last Pap Smear completed Adriane Gold [facility] 10/26/2015 09:51:37 Imaging Results None recorded. Procedure Notes None recorded. Medical Equipment None Reported. Allergies Allergen ID Allergen Name Allergen Category Reaction Reaction Severity Criticality Documentation Date Start Date Code Code System Note Provider Name and Address Organization Details Recorded Time 5061 Product containin g penicilli n (product) medicatio n Not available Not available Not available 01/14/20142012 82930 8001 SNOMED MAXINE Colon [facility] 4 12:42:05 Vitals Date Recorded Body height Oxygen saturation Oxygen saturation in Arterial blood by Pulse oximetry Body weight Heart rate Body mass index (BMI) Body temperature Systolic blood pressure Diastolic blood pressure Provider Name and Address Organization Details Last Updated DateTime 4 165.1 cm 98 % 98 % 31983.2 6313 g 71 /min 24.8 kg/m2 98.1 [degF] 104 mm[Hg] 72 mm[Hg] Saba perry [place] [facility] 4 13:04:13 Social History Question Answer Notes LastModified by Organizat ion Details LastModified Time Tobacco Smoking Status Never Smoker MAXINE Garcia [facility] 02/06/2014 12:47:00 What Type Of Diet Are You Following? REGULAR Information not available 02/06/2014 Which Illicit Or Recreational Drugs Have You Used? None Information not available 02/06/2014 Live Alone Or With Others? With Others Boyfriend And Sons Information not available 02/06/2014 How Many Children Do You Have? 3 Information not available 02/06/2014 How Much Tobacco Do You Smoke? No Information not available 02/06/2014 Sex: Unknown Functional Status Question Answer Note LastModified by Organizat ion Details LastModified Time What is your level of alcohol consumption? None Information not available 02/06/2014 Are you currently employed? Yes full-time Information not available 02/06/2014 Are you able to care for yourself? 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 None Information not available 02/06/2014 Mental Status None recorded. Family History Relationship Description Onset Age of this Age Resolved Age Notes LastModified by Organization Details LastModified Time Father Hypercholest erolemia lgladingdilor enz Not available 02/06/2014 13:21:42 Father Diabetes mellitus lgladingdilor enz Not available 02/06/2014 13:21:42 Paternal Grandfather Coronary arterioscler osis lgladingdilor enz Not available 02/06/2014 13:21:42 Medical History Condition Response Coronary Artery Disease N Gout N Other N Blood Diseases N Kidney Stones N Hyperthyroidism N Breast Cancer N mrsa exposure N Lung Disease N Hypothyroidism N Depression N COPD N Defects or Inherited Disease N Developmental or Behavioral Disorders N Breast Problem N Anesthesia Complications N Headaches/Migraines N Varicose Veins N Anxiety Disorder N Muscle, Joint, or Bone Problems N Obesity N Vision or Eye Problems N Arthritis N Head Injury/Concussion N Infertility N Polyps N Mental Disorder N Congenital Anomalies N Acid Reflux (GERD) Y Cancer N Stroke N ADHD N Endometriosis N High Cholesterol N Liver Disease N Headaches N Fibromyalgia N Kidney Disease N Heart Problems N Ear or Hearing Problems N Hospitalizations N Thyroid Problems N GI Problems N Developmental Delay N Acne N Eating Disorder N Skin Problems N Anemia N Constipation N Bladder Problems N Mental Illness N Diabetes N Ovarian Cancer N Bedwetting N Blood Transfusions N Heart Problems/Murmur N Seizures/Epilepsy N Tuberculosis N AIDS/HIV N Congestive Heart Failure (CHF) N Eczema N Abuse/Domestic Violence N Diverticulitis N Asthma N Allergies N Reflux/GERD N Hepatitis N Heart Disease N Pulmonary Embolism N Hypertension N Chicken Pox N Autism Spectrum Disorder (ASD) N Osteoporosis N Gynecological History Statement/Question Response Date of Last Pap Smear 10/19/2015 Obstetrics History GPAL:G 0 P 0 0 0 0 Immunizations Vaccine Type Date Status Note Provider Nam e and Address Organization Details Recorded Time Td (adult), 2 Lf tetanus toxoid, preservative free, adsorbed 1 completed Not Available [facility] 01/14/2014 13:50:02 Tdap 7 completed Not Available [facility] 01/14/2014 13:50:02 Past Encounters Encounter ID Performer Location Encounter Start Date Encounter Closed Date Diagnosis/Indication Diagnosis SNOMED-CT Code Diagnosis ICD10 Code Diagnosis Note [id number] Bhavya renteria MD Main Office [address] [facility] [address] [place] [address] 02/06/2014 12:50:54 02/06/2014 13:24:14 Allergic rhinitis 00284421 untreated and causing headaches, start sallergy med, restart nasal steroid she has and do sinus washing Headache 22549099 due to allergies need to treat allergies 260166 [employer] [address] [facility] [address] [place] [address] 11/30/2012 00:00:00 Health Concerns Section Related Observation LastModified by Organization Detai ls LastModified Time None Recorded Concern Status LastModified by Organization Details LastModified Time None Recorded Advance Directives Directive None Recorded Payers Encounter Date Sequence Insurance Name Policy Number Policy Rodriguez Covered Member ID Rodriguez Member ID Guarantor Name 02/06/2014 1 [facility] ([facility]) [id number] Michael Rojas [id number] Juliette Rojas Notes Date Note Type Note Provider Name and Address Organization Details Recorded Time 02/06/2014 text/html Pt is here with the complaint of allergies and headaches. PT got tested this year for allergies, was placed on nasal steroid but stopped. Pt was tried on zyrtec but she stopped. PT with a few weeks of frontal headaches, has pnd, mild congestion. No dizziness or fainting. Bhavya blevins [facility] 02/06/2014 13:25:09 OBGyn Episode No OBEpisode recorded.
--- OUTSIDE RECORDS SUMMARY | 2024-11-20 14:13 | XMS_ITS | Clinical Summary ---
Author Organization [facility] [address] [place] [address] [place] [address] Phone Care Team Providers Care Net Mender Name Role Phone Oralia Velez MD Primary Care Provider [phone] Allergies Active Allergy Reactions Criticality Noted Date Comments Penicillins Rash 06/14/2010 Medications rizatriptan (MAXALT) 10 mg tablet TAKE 1 TABLET BY MOUTH AT ONSET OF MIGRAINE ONCE A DAY 30 DAYS 12/14/2023 Active ondansetron (ZOFRAN) 4 mg tablet Take 1 Tablet by mouth every 12 hours as needed (migraine with nausea). 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 Gastroesophageal reflux disease 02/25/2019 Vitamin D deficiency 02/25/2019 Migraine without status migrainosus, not intract able 03/21/2018 Renal artery stenosis (CMS/HCC V24) 03/07/2018 Benign heart murmur 06/14/2010 Overview (06/13/2024): Normal echo 05/18/2010 ef 60 03/20- normal ETT Scoliosis 06/14/2010 Encounters Date Type Department Care Team Description 11/20/2024 Nurse Triage [facility] [address] [place], [place] [phone] Oralia Velez MD Abdominal Pain 10/02/2024 Telephone Adult Medicine [address] [phone] Oralia Velez MD Referral from Last 3 Months Immunizations Name Administration Dates Next Due DTaP (Infanrix) 6wks to less than 7yo 07/03/2003 Pfizer SARS-CoV-2 COVID-19, mRNA, LNP-S, preservative free 07/09/2021,01/01/2021,12/11/2020 Td, Unspecified 08/10/2000 Tdap Tetanus diptheria acell ular pertussis (Boostrix; Adacel) 7yo and older 01/15/2018,07/03/2006,07/03/2005 Surgical History Surgery Date Site/Laterality Comments APPENDECTOMY PROCEDURE: CT APPENDECTOMY; COMMENT: Open TUBAL LIGATION 06/1998 PROCEDURE: HISTORICAL TUBAL LIGATION; COMMENT: BTL Medical History Medical History Date Comments Scoliosis 06/14/2010 DX:Scoliosis Benign heart murmur 06/14/2010 DX:Benign he art murmur Gastroesophageal reflux disease 02/25/2019 DX:Gastroesophageal reflux disease Costochondritis DX:Costochondrit is Renal artery stenosis (CMS/HCC V24) DX:Renal artery stenosis (HCC) Renal mass DX:Renal mass Irritable bowel syndrome DX:Irri table bowel syndrome Family History Medical History Relation Name Comments Hypertension Father Other: Other Father heart dz Stroke Father Breast cancer Neg Hx Colon cancer Neg Hx Ovarian cancer Neg Hx Uterine cancer Neg Hx Relation Name Status Comments Brother Alive Father Mother Alive Sister Alive Social History Tobacco Use Types Packs/Day Years Used Date Smoking Tobacco: Never Smokeless Tobacco: Never Tobacco Cessation:Counseling Given: Not Answered Alcohol Use Standard Drinks/Week Comments No 0 (1 standard drink = 0.6 oz pur e alcohol) Comments Unknown Sex and Gender Information Value Date Recorded Sex Assigned at Not on file Legal Sex Female 12:52 AM EST Gender Identity Not on file Sexual Orientation Not on file Obstetrics History Last Filed Vital Signs Vital Sign Reading Time Taken Comments Blood Pressure 121/74 06/24/2024 2:56 PM EST Pulse 55 06/24/2024 2:56 PM EST Temperature 35.4 ??C (95.8 ??F) 06/24/2024 2:56 PM ES T Respiratory Rate 16 06/24/2024 2:56 PM EST Oxygen Saturation - - Inhaled Oxygen Concentration - - Weight 75.8 kg (167 lb) 06/24/2024 2:56 PM EST Height 166.4 cm (5' 5.5 ) 06/24/2024 2:56 PM EST Body Mass Index 27.37 06/24/2024 2:56 PM EST Plan of Treatment Health Maintenance Due Date Last Done Comments Hepatitis B Vaccines (1 of 3 - 19+ 3-dose series) 1993 Colorectal Cancer Screening: Colonoscopy 06/11/2022 Depression Screening 06/11/2022 HIV Screening 06/11/2022 Hepatitis C Screening 06/11/2022 Social Influencers of Health Screening 06/11/2022 COVID-19 Vaccine ( season) 2024 07/09/2021, 01/01/2021, 12/11/2020 Pneumococcal Vaccine: 50+ Years (1 of 1 - PCV) 2024 Zoster Vaccines (1 of 2) 2024 Breast Cancer Screening 10/03/2024 10/04/19, 05/03/2021, 04/20/2020, Additional history exists Influenza Vaccine (Season Ended) 2025 Cervical Cancer Screening: HPV 09/29/2027 09/28/2022 DTaP,Tdap,and Td Vaccines (7 - Td or Tdap) 01/16/2028 01/15/2018, 07/18/2006, 07/03/2006, Additional history exists Cholesterol Screening (Lipid Panel) 07/01/2029 07/01/2024, 09/01/2021 HIB Vaccines Aged Out No longer eligi ble based on patient's age to complete this topic HPV Vaccines Aged Out No longer eligi ble based on patient's age to complete this topic Hepatitis A Vaccines Aged Out No long er eligible based on patient's age to complete this topic IPV Vaccines Aged Out No longer eligi ble based on patient's age to complete this topic MMR Vaccines Aged Out No longer eligi ble based on patient's age to complete this topic Meningococcal ACWY Vaccine Aged Out N o longer eligible based on patient's age to complete this topic Meningococcal B Vaccine Aged Out No l onger eligible based on patient's age to complete this topic Pneumococcal Vaccine: Pediatrics (0 to 5 Years) and At-Risk Patients (6 to 64 Years) Aged Out No longer eligible based on patient's age to complete this topic RSV Immunization Patients Under 20 months Aged Out No longer eligible based on patient's age to complete this topic Varicella Vaccines Aged Out No longer eligible based on patient's age to complete this topic Procedures Procedure Name Priority Date/Time Associated Diagnosis Comments LIPID PANEL WITH REFLEX TO DIRECT LDL Routine 07/01/2024 9:11 AM EST Lipid screening SCREENING MAMMOGRAPHY BI 2-VIEW BREAST INC CAD Routine 10/03/2022 5:00 PM EDT Encounter for screening mammogram for malignant neoplasm of breast HM HPV Routine 09/28/2022 from Last 3 Months or Most Recently Relevant to Health Maintenance Results * (ABNORMAL) Lipid panel with reflex to direct LDL (07/01/2024 9:11 AM EST) Cholesterol 201(H) 0 - 200 mg/dL LAB CHEMISTRY METHOD 07/01/2024 12:49 PM [facility] Triglycerides 69 0 - 150 mg/dL LAB CHEMISTRY METHOD 07/01/2024 12:49 PM [facility] HDL 88 >=40 mg/dL LAB CHEMISTRY METHOD 07/01/2024 12:49 PM [facility] LDL Calculated 99 0 - 100 mg/dL LAB CHEMISTRY METHOD 07/01/2024 12:49 PM [facility] VLDL Cholesterol Armand 13.8 mg/dL LAB CHEMISTRY METHOD 07/01/2024 12:49 PM [facility] Non HDL Chol. (LDL+VLDL) 113 <145 mg/dL LAB CHEMISTRY METHOD 07/01/2024 12:49 PM [facility] Chol/HDL Ratio 2.3 0.0 - 4.4 LAB CHEMISTRY METHOD 07/01/2024 12:49 PM [facility] Blood Venous blood specimen / Unknown Venipuncture / Unknown 07/01/2024 9:11 AM EST 07/01/2024 9:11 AM EST Any SLAUGHTER LAB BLOOD ORDERABLES Final Re sult [facility]) [facility] [address] [place] [address], * SCREENING MAMMOGRAPHY BI 2-VIEW BREAST INC CAD (10/03/2022 5:00 PM EDT) Anatomical Region Laterality Modality Radiographic Judit ging 09/28/2022 9:12 AM EDT Narrative 10/04/2022 12:41 PM EDT This is a summary report. The complete report is available in the patient's medical record. If you cannot access the medical record, please contact the sending organization for a detailed fax or copy. Full field digital screening 2D and tomosynthesis mammography, reviewed with CAD and compared to previous. The breast tissue is heterogeneously dense, limiting sensitivity. No suspicious mass, architectural distortion or suspicious calcifications are identified. IMPRESSION: : Dense breast tissue, limiting the sensitivity of mammography. No mammographic evidence of malignancy. BIRADS 1-Negative; N. 5 year breast cancer risk assessment 0.5 % Lifetime breast cancer risk assessment 4.7 % Breast cancer risk category Low (<15%) Procedure Note Esperanza Colunga MD - 08/07/2023 This is a summary report. The complete report is available in thepatient's medical record. If you cannot access the medical record, pleasecontact the sending organization for a detailed fax or copy. Full field digital screening 2D and tomosynthesis mammography, reviewedwith CAD and compared to previous. The breast tissue is heterogeneouslydense, limiting sensitivity. No suspicious mass, architectural distortionor suspicious calcifications are identified. IMPRESSION: : Dense breast tissue, limiting the sensitivity of mammography. Nomammographic evidence of malignancy. BIRADS 1-Negative; N. 5 year breast cancer risk assessment 0.5 % Lifetime breast cancer risk assessment 4.7 % Breast cancer risk category Low (<15%) Nora Infante CNM IMG XR PROCEDURES Final Result * Hm Cervical Cancer Screening: HPV (09/28/2022) Cervical Cancer Screening: HPV Abstracted, Negative us Historical Provider HEALTH MAINTENANCE Final Result from Last 3 Months or Most Recently Relevant to Health Maintenance Insurance [id number] [place] [address] Care Teams Net Mender Relationship Specialty Start Date End Date Oralia Velez MD [address] [place] [address] PCP - General Internal Medicine 01/05/21
[2024-11-20 14:17] LABS: Albumin Level 4.5 g/dL (3.5-5.0); Bilirubin Total 0.3 mg/dL (0.0-1.0); Estimated Glomerular Filt Rate > 60
[2024-11-20] MEDS: Ondansetron ODT 4 MG TAB.RAPDIS TRANSLINGU (14:35)
[2024-11-20] MEDS: Famotidine 20 MG TABLET PO (14:35)
[2024-11-20] MEDS: Lidocaine HCl Viscous 2 % 15 ML SOLUTION PO (14:35)
[2024-11-20] MEDS: Magnesium Hydrox/Alum Hydrox 30 ML ORAL.SUSP PO (14:35)
[2024-11-20 14:39] VITALS: BP 110/68; PULSE 72; RESP 18; TEMP 36.3; O2SAT 99
== END 2024-11-20 15:02 | disposition home or self-care (01) ==
PROVIDERS: Physician Assistant; Emergency Provider Emergency Medicine
DX: R10.13 Epigastric pain (principal); R07.89 Other chest pain; R11.2 Nausea with vomiting, unspecified; Z79.899 Other long term (current) drug therapy
CPT/HCPCS: 36415; 76705; 80048; 80076; 81003; 81025; 83690; 83735; 85025; 93005; 99283; 99284

== ENCOUNTER → 2024-11-20 12:07 | Outpatient (BNV) | payer BC, SELFPAY | PROVIDERS: Visit Provider Radiology Diagnostic Radiology | DX: R10.11 Right upper quadrant pain (principal) | CPT/HCPCS: 76705 ==

== ENCOUNTER → 2024-11-20 14:09 | Outpatient (BNV) | payer BC, SELFPAY | PROVIDERS: Emergency Provider Emergency Medicine; Visit Provider Internal Medicine Cardiovascular Disease | DX: R07.9 Chest pain, unspecified (principal) | CPT/HCPCS: 93010 ==